=== PATIENT | female | born 1995 | race Caucasian/White ===

== ENCOUNTER 2018-01-25 09:08 | Day surgery (SDC) | payer OTHER ==
[2018-01-25 10:00] VITALS: BMI 31.1
[2018-01-25 11:23] VITALS: TEMP 97.9
[2018-01-25 12:18] VITALS: BP 124/68; PULSE 84
[2018-01-25 12:43] LABS: BASO % 0.8 % (0-2.0); EOS % 1.6 % (0-4.5); HEMATOCRIT 36.6 % (32.4-45.2); HEMOGLOBIN 12.5 GM/dL (10.7-15.3); LYMPH % 20.9 % (8-40); MCH 30.1 pg (25.7-33.7); MCHC 34.3 g/dl (32.0-36.0); MEAN CELL VOLUME 87.7 fl (80-96); MONO % 5.3 % (3.8-10.2); NEUT % 71.4 % (42.8-82.8); PLATELET COUNT 349 K/MM3 (134-434); RBC 4.17 M/mm3 (3.60-5.2); RDW 13.4 % (11.6-15.6); RETICULOCYTES 0.99 % (0.5-1.5); WHITE BLOOD COUNT 6.3 K/mm3 (4.0-10.0)
[2018-01-25 13:11] LABS: ALBUMIN 3.6 g/dl (3.4-5.0); ANION GAP 6 (8-16); BILIRUBIN,TOTAL 0.5 mg/dL (0.2-1.0); BLOOD UREA NITROGEN 13 mg/dL (7-18); CALCIUM 8.8 mg/dL (8.5-10.1); CHLORIDE 106 mmol/L (98-107); CO2 27 mmol/L (21-32); CREATININE 0.8 mg/dL (0.55-1.02); GLUCOSE,RANDOM 81 mg/dL (74-106); POTASSIUM 4.3 mmol/L (3.5-5.1); SGOT/AST 13 U/L (15-37); SGPT/ALT 17 U/L (12-78); SODIUM 139 mmol/L (136-145); TOT PROT 8.1 g/dl (6.4-8.2)
[2018-01-25 13:35] LABS: ALK PHOS 68 U/L (45-117)
[2018-01-26 06:11] LABS: HBsAG SCREEN Negative (Negative); SERUM IRON SATURATION 24 % (15-55); TOTAL IRON BINDING CAPACITY 282 ug/dL (250-450); UIBC 215 ug/dL (131-425)
--- NOTE | 2018-01-29 17:46 | PATH ---
Surgical Pathology Report Patient Name: [facility]. Rec. #: [id number] /Age/Gender: 1995 (Age: 22) / F Account: [id number] Location: U-ENDOSCOPY Taken: 01/25/2018 Received: 01/25/2018 Reported: 01/29/2018 Physicians: Martita Edwards M.D. Specimen(s) Received A: POLYP SIGMOID COLON-PSEUDO B: BX ILEUM C: BX CECUM D: BX RIGHT COLON E: BX TRANSVERSE COLON F: BX DESCENDING COLON G: BX SIGMOID COLON H: BX RECTUM Clinical History History of ulcerative colitis Postoperative diagnosis: Colon polyp, colitis Final Diagnosis A. SIGMOID COLON PSEUDOPOLYP, POLYPECTOMY: POLYPOID STROMAL TISSUE SHOWING COMPLETE EPITHELIAL DENUDATION WITH ACUTE AND CHRONIC INFLAMMATION. B. ILEUM, BIOPSY: ILEUM MUCOSA WITH REACTIVE LYMPHOID FOLLICLE. C. CECUM, BIOPSY: COLONIC MUCOSA WITH CHRONIC INFLAMMATION, CRYPTAL DISTORTION, AND REACTIVE LYMPHOID FOLLICLES. D. RIGHT COLON, BIOPSY: COLONIC MUCOSA WITH CHRONIC INFLAMMATION, CRYPTAL DISTORTION, AND REACTIVE LYMPHOID FOLLICLES. ONE FOCUS OF NON-NECROTIZING GRANULOMA FORMATION IN THE LAMINA PROPRIA. E. TRANSVERSE COLON, BIOPSY: COLONIC MUCOSA WITH CHRONIC INFLAMMATION AND INCREASED EOSINOPHILS IN THE LAMINA PROPRIA (EOSINOPHILS COUNTS >60/ HPF), CRYPTAL DISTORTION, AND REACTIVE LYMPHOID FOLLICLES. ONE FOCUS OF NON-NECROTIZING GRANULOMA FORMATION IN THE LAMINA PROPRIA. F. DESCENDING COLON, BIOPSY: COLONIC MUCOSA WITH CHRONIC INFLAMMATION AND INCREASED EOSINOPHILS IN THE LAMINA PROPRIA (EOSINOPHILS COUNTS >60/ HPF), CRYPTAL DISTORTION, AND REACTIVE LYMPHOID FOLLICLES. G. SIGMOID COLON, BIOPSY: COLONIC MUCOSA WITH CHRONIC INFLAMMATION AND INCREASED EOSINOPHILS IN THE LAMINA PROPRIA (EOSINOPHILS COUNTS >60/ HPF), CRYPTAL DISTORTION, AND REACTIVE LYMPHOID AGGREGATE. H. RECTUM, BIOPSY: COLONIC MUCOSA WITH CHRONIC INFLAMMATION AND INCREASED EOSINOPHILS IN THE LAMINA PROPRIA (EOSINOPHILS COUNTS >50/ HPF), CRYPTAL DISTORTION, AND REACTIVE LYMPHOID FOLLICLES. COMMENT: THERE IS NO DYSPLASIA, PARASITE OR VIRAL INCLUSIONS. PAS FOR FUNGI AND AFB STAIN DONE ON SECTIONS FROM BLOCK D1 and E1 WERE NEGATIVE. Electronically Signed Shanthi Urbina M.D. Gross Description A. Received in formalin, labeled "polyp sigmoid" is a plunkett, polypoid portion of soft tissue measuring 0.6 cm. in greatest dimension. The specimen is submitted in toto in one cassette. B. Received in formalin, labeled "ileum" are 2 plunkett, irregular portions of soft tissue measuring 0.2 and 0.3 cm. in greatest dimension. The specimens are submitted in toto in one cassette. C. Received in formalin, labeled "cecum" are 4 plunkett, irregular portions of soft tissue ranging from 0.3-0.6 cm. in greatest dimension. The specimens are submitted in toto in one cassette. D. Received in formalin, labeled "right colon" are 4 plunkett, irregular portions of soft tissue ranging from 0.3-0.8 cm. in greatest dimension. The specimens are submitted in toto in one cassette. E. Received in formalin, labeled "transverse colon biopsy" are 4 plunkett, irregular portions of soft tissue ranging from 0.2-0.3 cm. in greatest dimension. The specimens are submitted in toto in one cassette. F. Received in formalin, labeled "descending colon biopsy" are 2 plunkett, irregular portions of soft tissue measuring 0.3 and 0.5 cm. in greatest dimension. The specimens are submitted in toto in one cassette. G. Received in formalin, labeled "sigmoid colon biopsy" are 3 plunkett, irregular portions of soft tissue ranging from 0.1-0.3 cm. in greatest dimension. The specimens are submitted in toto in one cassette. H. Received in formalin, labeled "rectum" are 2 plunkett, irregular portions of soft tissue measuring 0.4 and 0.5 cm. in greatest dimension. The specimens are submitted in toto in one cassette. 01/25/2018 [facility]01/25/2018
== END 2018-01-25 12:15 | disposition home or self-care (01) ==
LOC: JASU-ENDO 09:08
PROVIDERS: ATTEND Internal Medicine Gastroenterology
PROC: 0DBE8ZX Excision of Large Intestine, Via Natural or Artificial Opening Endoscopic, Diagnostic (ICD-10-PCS; 2018-01-25)
PROC: 0DBN8ZX Excision of Sigmoid Colon, Via Natural or Artificial Opening Endoscopic, Diagnostic (ICD-10-PCS; principal; 2018-01-25 10:45)
DX: Z12.11 Encounter for screening for malignant neoplasm of colon (principal); K51.90 Ulcerative colitis, unspecified, without complications; K63.5 Polyp of colon; K62.4 Stenosis of anus and rectum
CPT/HCPCS: 36415; 80053; 82306; 82607; 82728; 83540; 83550; 84703; 85025; 85044; 86140; 86480; 87340; 88305-TC; 88312-TC

== ENCOUNTER 2019-02-17 07:30 | Day surgery (SDC) | payer OTHER ==
[2019-02-13 14:50] VITALS: BMI 30.4
[2019-02-17 09:24] VITALS: TEMP 98.3
[2019-02-17 11:18] VITALS: BP 115/58; PULSE 72
[2019-02-17 11:38] LABS: BASO % 0.7 % (0-2.0); EOS % 1.4 % (0-4.5); HEMATOCRIT 39.1 % (32.4-45.2); HEMOGLOBIN 13.1 GM/dL (10.7-15.3); LYMPH % 26.3 % (8-40); MCH 29.9 pg (25.7-33.7); MCHC 33.4 g/dl (32.0-36.0); MEAN CELL VOLUME 89.3 fl (80-96); MEAN PLT VOLUME 7.7 fl (7.5-11.1); MONO % 7.3 % (3.8-10.2); NEUT % 64.3 % (42.8-82.8); PLATELET COUNT 378 K/MM3 (134-434); RBC 4.37 M/mm3 (3.60-5.2); RDW 12.8 % (11.6-15.6); RETICULOCYTES 0.92 % (0.5-1.5); WHITE BLOOD COUNT 6.8 K/mm3 (4.0-10.0)
[2019-02-17 11:57] LABS: ALBUMIN 3.6 g/dl (3.4-5.0); BILIRUBIN,TOTAL 0.4 mg/dL (0.2-1); CALCIUM 9.2 mg/dL (8.5-10.1); CREATININE 0.7 mg/dL (0.55-1.3); POTASSIUM 4.8 mmol/L (3.5-5.1); TOT PROT 7.8 g/dl (6.4-8.2)
[2019-02-18 04:07] LABS: SERUM IRON SATURATION 25 % (15-55); TOTAL IRON BINDING CAPACITY 272 ug/dL (250-450)
--- NOTE | 2019-02-18 17:40 | PATH ---
Surgical Pathology Report Patient Name: SHANITA BRUNNER [facility]. Rec. #: [id number] /Age/Gender: 1995 (Age: 23) / F Account: [id number] Location: U-ENDOSCOPY Taken: 02/17/2019 Received: 02/17/2019 Reported: 02/18/2019 Physicians: Martita Edwards M.D. Specimen(s) Received A: ILEUM B: CECUM C: RIGHT COLON D: TRANSVERSE COLON E: DESCENDING COLON F: SIGMOID COLON G: RECTUM Clinical History Colitis surveillance Postoperative diagnosis: Active ulcerative colitis Final Diagnosis A. ILEUM, BIOPSY: ILEAL MUCOSA WITHOUT SIGNIFICANT PATHOLOGIC FINDINGS. B. CECUM, BIOPSY: COLONIC MUCOSA WITH MODERATE CHRONIC ACTIVE COLITIS. NO GRANULOMA OR DYSPLASIA IDENTIFIED. C. COLON, RIGHT, BIOPSY: COLONIC MUCOSA WITH MODERATE CHRONIC ACTIVE COLITIS. NO GRANULOMA OR DYSPLASIA IDENTIFIED. D. TRANSVERSE COLON, BIOPSY: COLONIC MUCOSA WITH SEVERE CHRONIC ACTIVE COLITIS WITH ASSOCIATED ULCERATION. NO GRANULOMA OR DYSPLASIA IDENTIFIED. E. DESCENDING COLON, BIOPSY: COLONIC MUCOSA WITH SEVERE CHRONIC ACTIVE COLITIS WITH ASSOCIATED ULCERATION. NO GRANULOMA OR DYSPLASIA IDENTIFIED. F. SIGMOID COLON, BIOPSY: COLONIC MUCOSA WITH SEVERE CHRONIC ACTIVE COLITIS WITH ASSOCIATED ULCERATION. NO GRANULOMA OR DYSPLASIA IDENTIFIED. G. RECTUM, BIOPSY: COLONIC MUCOSA WITH MODERATE TO SEVERE CHRONIC ACTIVE COLITIS WITH ASSOCIATED ULCERATION. NO GRANULOMA OR DYSPLASIA IDENTIFIED. Comment: Findings are consistent with known history of ulcerative colitis, moderate to severe activity. Suggest clinical and endoscopic correlation. Electronically Signed Nimisha Tolbert M.D. Gross Description A. Received in formalin, labeled "biopsy ileum" is a plunkett, irregular portion of soft tissue measuring 0.4 cm. in greatest dimension. The specimen is submitted in toto in one cassette. B. Received in formalin, labeled "biopsy cecum" are 5 plunkett, irregular portions of soft tissue ranging from 0.2-0.7 cm. in greatest dimension. The specimens are submitted in toto in one cassette. C. Received in formalin, labeled "biopsy right colon" are 4 plunkett, irregular portions of soft tissue ranging from 0.2-0.3 cm. in greatest dimension. The specimens are submitted in toto in one cassette. D. Received in formalin, labeled "biopsy transverse colon" are 3 plunkett, irregular portions of soft tissue ranging from 0.2-0.4 cm. in greatest dimension. The specimens are submitted in toto in one cassette. E. Received in formalin, labeled "biopsy descending colon" are 3 plunkett, irregular portions of soft tissue ranging from 0.1-0.4 cm. in greatest dimension. The specimens are submitted in toto in one cassette. F. Received in formalin, labeled "biopsy sigmoid colon" are 3 plunkett, irregular portions of soft tissue ranging from 0.3-0.5 cm. in greatest dimension. The specimens are submitted in toto in one cassette. G. Received in formalin, labeled "biopsy rectum" are 4 plunkett, irregular portions of soft tissue ranging from 0.3-0.5 cm. in greatest dimension. The specimens are submitted in toto in one cassette. 02/17/2019 [facility]02/17/2019
== END 2019-02-17 11:00 | disposition home or self-care (01) ==
LOC: JASU-ENDO 07:30
PROVIDERS: ATTEND Internal Medicine Gastroenterology
PROC: 0DBE8ZX Excision of Large Intestine, Via Natural or Artificial Opening Endoscopic, Diagnostic (ICD-10-PCS; 2019-02-17)
PROC: 0DBB8ZX Excision of Ileum, Via Natural or Artificial Opening Endoscopic, Diagnostic (ICD-10-PCS; principal; 2019-02-17 08:30)
DX: Z12.11 Encounter for screening for malignant neoplasm of colon (principal); K51.90 Ulcerative colitis, unspecified, without complications; K62.4 Stenosis of anus and rectum
CPT/HCPCS: 36415; 80053; 82728; 83540; 83550; 84703; 85025; 85044; 86140; 88305-TC

== ENCOUNTER 2020-02-11 08:58 | Day surgery (SDC) | payer OTHER ==
[2020-02-05 15:48] VITALS: BMI 28.7
[2020-02-11 11:00] VITALS: TEMP 98.8
[2020-02-11 11:50] VITALS: BP 100/55; PULSE 71
--- NOTE | 2020-02-12 17:44 | PATH ---
Surgical Pathology Report Patient Name: SHANITA BRUNNER [facility]. Rec. #: [id number] /Age/Gender: 1995 (Age: 24) / F Account: [id number] Location: [facility]-ENDOSCOPY Taken: 02/11/2020 Received: 02/11/2020 Reported: 02/12/2020 Physicians: Martita Edwards M.D. Specimen(s) Received A: ILEUM B: CECUM C: RIGHT COLON D: PROXIMAL TRANSVERSE COLON E: DISTAL TRANVERSE COLON F: DESCENDING COLON G: SIGMOID COLON H: RECTUM Clinical History Ulcerative colitis Postoperative diagnosis: Active ulcerative colitis Final Diagnosis A. ILEUM BIOPSY: ILEUM MUCOSA WITH REACTIVE LYMPHOID AGGREGATE IN THE LAMINA PROPRIA. NEGATIVE FOR ACUTE INFLAMMATION OR INTRAEPITHELIAL LYMPHOCYTOSIS. B. CECUM, BIOPSY: COLONIC MUCOSA WITH SEVERE ACTIVE CHRONIC INFLAMMATION OF LAMINA PROPRIA, ACUTE CRYPTITIS, CRYPT ABSCESS, AND MARKED CRYPTAL ARCHITECTURAL DISTORTION. SEE COMMENT. C. RIGHT COLON, BIOPSY: COLONIC MUCOSA WITH SEVERE ACTIVE CHRONIC INFLAMMATION OF LAMINA PROPRIA, ACUTE CRYPTITIS, CRYPT ABSCESS, AND MARKED CRYPTAL ARCHITECTURAL DISTORTION. SEE COMMENT. D. PROXIMAL TRANSVERSE COLON, BIOPSY: COLONIC MUCOSA WITH SEVERE ACTIVE CHRONIC INFLAMMATION OF LAMINA PROPRIA, ACUTE CRYPTITIS, CRYPT ABSCESS, AND MARKED CRYPTAL ARCHITECTURAL DISTORTION. SEE COMMENT. E. DISTAL TRANSVERSE COLON, BIOPSY: COLONIC MUCOSA WITH SEVERE ACTIVE CHRONIC INFLAMMATION OF LAMINA PROPRIA, ACUTE CRYPTITIS, CRYPT ABSCESS, AND MARKED CRYPTAL ARCHITECTURAL DISTORTION. SEE COMMENT. F. DESCENDING COLON, BIOPSY: COLONIC MUCOSA WITH SEVERE ACTIVE CHRONIC INFLAMMATION OF LAMINA PROPRIA, ACUTE CRYPTITIS, CRYPT ABSCESS, AND MARKED CRYPTAL ARCHITECTURAL DISTORTION. SEE COMMENT. G. SIGMOID COLON, BIOPSY: COLONIC MUCOSA WITH PREDOMINANT EPITHELIAL DENUDATION, SEVERE ACTIVE CHRONIC INFLAMMATION OF LAMINA PROPRIA, AND GRANULATION TISSUE FORMATION. SEE COMMENT. H. RECTUM, BIOPSY: COLONIC MUCOSA WITH SEVERE ACTIVE CHRONIC INFLAMMATION OF LAMINA PROPRIA, ACUTE CRYPTITIS, CRYPT ABSCESS, AND MARKED CRYPTAL ARCHITECTURAL DISTORTION. SEE COMMENT. Comment: There is no dysplasia, granuloma, parasite or viral inclusions in any of the specimens. The above histologic features are consistent with known history of ulcerative colitis with moderate to severe activity. Please correlate clinically. Electronically Signed Shanthi Urbina M.D. Gross Description A. Received in formalin, labeled "biopsy ileum" are 2 plunkett, irregular portions of soft tissue measuring 0.3 and 0.4 cm. in greatest dimension. The specimens are submitted in toto in one cassette. B. Received in formalin, labeled "biopsy cecum" are 2 plunkett, irregular portions of soft tissue measuring 0.1 and 0.5 cm. in greatest dimension. The specimens are submitted in toto in one cassette. C. Received in formalin, labeled "biopsy right colon" is a plunkett, irregular portion of soft tissue measuring 0.7 cm. in greatest dimension. The specimen is submitted in toto in one cassette. D. Received in formalin, labeled "biopsy proximal transverse" are 2 plunkett, irregular portions of soft tissue measuring 0.2 and 0.4 cm. in greatest dimension. The specimens are submitted in toto in one cassette. E. Received in formalin, labeled "biopsy distal transverse" is a plunkett, irregular portion of soft tissue measuring 0.3 cm. in greatest dimension. The specimen is submitted in toto in one cassette. F. Received in formalin, labeled "biopsy descending colon" are 2 plunkett, irregular portions of soft tissue measuring 0.2 and 0.3 cm. in greatest dimension. The specimens are submitted in toto in one cassette. G. Received in formalin, labeled "biopsy sigmoid colon" is a plunkett, irregular portion of soft tissue measuring 0.3 cm. in greatest dimension. The specimen is submitted in toto in one cassette. H. Received in formalin, labeled "biopsy rectum" are 2 plunkett, irregular portions of soft tissue measuring 0.2 and 0.3 cm. in greatest dimension. The specimens are submitted in toto in one cassette. 02/11/2020 [facility]02/11/2020
== END 2020-02-11 11:50 | disposition home or self-care (01) ==
LOC: JASU-ENDO 08:58
PROVIDERS: ATTEND Internal Medicine Gastroenterology
PROC: 0DBE8ZX Excision of Large Intestine, Via Natural or Artificial Opening Endoscopic, Diagnostic (ICD-10-PCS; 2020-02-11)
PROC: 0DBP8ZX Excision of Rectum, Via Natural or Artificial Opening Endoscopic, Diagnostic (ICD-10-PCS; principal; 2020-02-11 10:00)
DX: Z12.11 Encounter for screening for malignant neoplasm of colon (principal); K51.90 Ulcerative colitis, unspecified, without complications; K62.89 Other specified diseases of anus and rectum
CPT/HCPCS: 81025; 88305-TC

== ENCOUNTER 2021-07-08 05:30 | Day surgery (SDC) | payer OTHER ==
[2021-07-06 15:08] VITALS: BMI 29.2
[2021-07-08 09:12] VITALS: TEMP 97.8
[2021-07-08 10:09] VITALS: BP 126/64; PULSE 69
[2021-07-08 10:37] LABS: BASO % 0.8 % (0-2.0); EOS % 3.3 % (0-4.5); HEMATOCRIT 32.9 % (32.4-45.2); HEMOGLOBIN 11.1 GM/dL (10.7-15.3); LYMPH % 33.4 % (8-40); MCH 28.9 pg (25.7-33.7); MCHC 33.7 g/dl (32.0-36.0); MEAN CELL VOLUME 85.7 fl (80-96); MEAN PLT VOLUME 7.3 fl (7.5-11.1); MONO % 7.1 % (3.8-10.2); NEUT % 55.4 % (42.8-82.8); PLATELET COUNT 399 10^3/uL (134-434); RBC 3.84 M/mm3 (3.60-5.2); RDW 13.4 % (11.6-15.6)
[2021-07-08 10:56] LABS: CALCIUM 8.9 mg/dL (8.5-10.1)
[2021-07-08 10:57] LABS: ALBUMIN 3.3 g/dl (3.4-5.0); BLOOD UREA NITROGEN 4.1 mg/dL (7-18)
[2021-07-08 11:00] LABS: CREATININE 0.7 mg/dL (0.55-1.3)
[2021-07-08 11:02] LABS: BILIRUBIN,TOTAL 0.3 mg/dL (0.2-1); TOT PROT 7.5 g/dl (6.4-8.2)
== END 2021-07-08 10:30 | disposition home or self-care (01) ==
LOC: JASU-ENDO 05:30
PROVIDERS: ATTEND Internal Medicine Gastroenterology
PROC: 0DBL8ZX Excision of Transverse Colon, Via Natural or Artificial Opening Endoscopic, Diagnostic (ICD-10-PCS; 2021-07-08)
PROC: 0DBN8ZX Excision of Sigmoid Colon, Via Natural or Artificial Opening Endoscopic, Diagnostic (ICD-10-PCS; 2021-07-08)
PROC: 0DBP8ZX Excision of Rectum, Via Natural or Artificial Opening Endoscopic, Diagnostic (ICD-10-PCS; 2021-07-08)
PROC: 0DBF8ZX Excision of Right Large Intestine, Via Natural or Artificial Opening Endoscopic, Diagnostic (ICD-10-PCS; 2021-07-08)
PROC: 0DBB8ZX Excision of Ileum, Via Natural or Artificial Opening Endoscopic, Diagnostic (ICD-10-PCS; 2021-07-08)
PROC: 0DBM8ZX Excision of Descending Colon, Via Natural or Artificial Opening Endoscopic, Diagnostic (ICD-10-PCS; 2021-07-08)
PROC: 0DBH8ZX Excision of Cecum, Via Natural or Artificial Opening Endoscopic, Diagnostic (ICD-10-PCS; principal; 2021-07-08 08:30)
DX: Z12.11 Encounter for screening for malignant neoplasm of colon (principal); K51.80 Other ulcerative colitis without complications; K62.4 Stenosis of anus and rectum
CPT/HCPCS: 36415; 80053; 81025; 82306; 83516; 85025; 86140; 86255; 86671; 88305-TC

== ENCOUNTER 2022-09-15 04:41 | Day surgery (SDC) | payer OTHER ==
[2022-09-14 11:11] VITALS: BMI 30.2
[2022-09-15 11:04] VITALS: TEMP 97.8
[2022-09-15 11:14] VITALS: RESP 16
[2022-09-15 11:55] VITALS: BP 107/58; PULSE 61
== END 2022-09-15 11:40 | disposition home or self-care (01) ==
LOC: JASU-ENDO 04:41
PROVIDERS: ATTEND Internal Medicine Gastroenterology
PROC: 0DBK8ZX Excision of Ascending Colon, Via Natural or Artificial Opening Endoscopic, Diagnostic (ICD-10-PCS; 2022-09-15)
PROC: 0DBL8ZX Excision of Transverse Colon, Via Natural or Artificial Opening Endoscopic, Diagnostic (ICD-10-PCS; 2022-09-15)
PROC: 0DBP8ZX Excision of Rectum, Via Natural or Artificial Opening Endoscopic, Diagnostic (ICD-10-PCS; 2022-09-15)
PROC: 0DBB8ZX Excision of Ileum, Via Natural or Artificial Opening Endoscopic, Diagnostic (ICD-10-PCS; 2022-09-15)
PROC: 0DBM8ZX Excision of Descending Colon, Via Natural or Artificial Opening Endoscopic, Diagnostic (ICD-10-PCS; 2022-09-15)
PROC: 0DBH8ZX Excision of Cecum, Via Natural or Artificial Opening Endoscopic, Diagnostic (ICD-10-PCS; 2022-09-15)
PROC: 0D5N8ZZ Destruction of Sigmoid Colon, Via Natural or Artificial Opening Endoscopic (ICD-10-PCS; principal; 2022-09-15 11:00)
DX: K51.912 Ulcerative colitis, unspecified with intestinal obstruction (principal); K51.40 Inflammatory polyps of colon without complications
CPT/HCPCS: 81025; 88305-TC; 88342-TC